=== PATIENT | female | born 1995 | race Caucasian/White ===

== ENCOUNTER → 2020-09-10 10:35 | Outpatient (BNVA) | payer BC, MEDICAID, SELFPAY | PROVIDERS: Family Provider Nurse Practitioner Family; PCP Family Medicine; Visit Provider Obstetrics & Gynecology | DX: O02.1 Missed abortion (principal) | CPT/HCPCS: 87635 ==

== ENCOUNTER 2020-09-15 06:00 | Day surgery (SDC) | payer BC, MEDICAID, SELFPAY ==
[2020-09-14 13:25] VITALS: BMI 24.0
[2020-09-15] VITALS (10 sets, daily range): BP systolic 78–132; BP diastolic 37–101; PULSE 96–116; RESP 16–22; TEMP 36.6–36.8; O2SAT 96–98
[2020-09-15] MEDS: sodium chloride 0.9% 1,000 ML 30 ML IV (06:40)
--- NOTE | 2020-09-15 06:41 | P.ANESASSM_ITS ---
Pre-Anesthetic Assessment Pre-Anesthetic Assessment: Height/Weight: Height 1.47 m Weight 52.163 kg Preop Diagnosis: Missed Proposed Procedure: Operation Date: 09/15/20 07:00 Proposed Procedures p Dilation And Curettage w/ Suction 06067 O02.1(Not Applicable) - Adelfo Nunez MD Familial anesthetic complications: None Was Beta Valentine taken within 24 hours: N/A Last intake: NPO > 8hrs Social: Social History: No alcohol and No tobacco Exam: Pre-Anes Outpt Exam: alert, oriented x 3, clear to auscultation bilaterally and regular rate & rhythm Airway: Cervical ROM: WNL MP: 2 Dentition: Full Metabolic: Comments: hypoglycemia Anesthetic Plan: ASA status: 1 Anesthesia: MAC Risk of > 500 ml blood loss (7ml/kg in children): No PFSH Anesthesia PFSH: Medical History (Updated 09/12/20 @ 17:23 by Adelfo Nunez MD) Anxiety and depression Migraine with aura Surgical History (Updated 09/12/20 @ 17:06 by Adelfo Nunez MD) H/O left wrist surgery (~2017) Fracture repair. Performed at [facility] in [place], [place]. H/O unilateral salpingectomy (~04/2020) Laparoscopic, left. Performed in [place], [place]. Family History Mother Hypertension Stroke Family history of thyroid problem Cancer Tongue and throat Migraine headache Father Diabetes Lung cancer Grandfather Diabetes Paternal Sister Migraine headache Social History Smoking and tobacco status: never smoked Alcohol intake: never Substance/Drug Use: never Data Anesthesia Cardiac Studies: No Data to Display
--- NOTE | 2020-09-15 06:42 | P.HPUD_ITS ---
Surgery/Procedure H&P Update DATE OF PROCEDURE: September 15, 2020 DATE H&P PERFORMED: 09/10/20 H&P UPDATE INFORMATION: I have reviewed H&P completed within last 30 days, I have examined patient prior to procedure, No changes to prior documentation and H&P is in [facility] EMR on date indicated PREOP DIAGNOSIS: Blighted Ovum PLANNED PROCEDURE: Operation Date: 09/15/20 07:00 Proposed Procedures p Dilation And Curettage w/ Suction 82283 O02.1(Not Applicable) - Adelfo Nunez MD Related Problem List Diagnoses (1) Blighted ovum:
[2020-09-15] MEDS: gabapentin 300 mg Capsule PO (06:54)
[2020-09-15] MEDS: ketorolac 30 mg/mL INJ IVP (06:54)
[2020-09-15] MEDS: midazolam 1 mg/mL INJ 2 mL 2 MG IVP (06:55)
--- NOTE | 2020-09-15 07:25 | P.OP_ITS ---
Operative Report Date of procedure: September 15, 2020 Pre-op Diagnosis: Blighted Ovum Post-op Diagnosis: Blighted ovum at 9-5/7 weeks gestation Procedure Done: Dilation and curettage with suction for treatment of blighted ovum, Paracervical block with 2% lidocaine with epinephrine Specimens removed/disposition: Products of conception Surgeon: Adelfo Nunez Civil Structural Designer: None Anesthesia: MAC and Other (Paracervical block) Estimated blood loss (mL): 25 IV fluids (mL): 500 Urine output (mL): 200 Complications: None Findings: Approximately 8-week size uterus, slightly anteverted. No palpable masses. Brief History: Patient is a 24-year-old female, 1, para 0 with an LMP of 07/09/2021 and an EDC of 04/14/2021 based on LMP, which placed her at 9-5/7 weeks gestation today. She was seen in [place] for infertility evaluation. She had finished a surgical treatment (removal of fallopian tube) and approximately 2 months later had a spontaneous . Ultrasound on 08/25/2020 showed a yolk sac, but no pole. Follow-up ultrasound on 09/08/2020 showed approximately 1 week increase in sac size, but still no pole. Based upon this, she was diagnosed with a blighted ovum. Treatment options were discussed with her and she wished to proceed with a dilation and curettage with suction. Procedure: Patient was taken to the operating room where IV sedation was started. She was prepped and draped in the usual sterile fashion in the dorsal supine position with legs in Yonas style stirrups. Sequential compression boots were placed prior to starting the case. Bladder was drained. Exam under anesthesia was performed. She was found to have an approximately 8- week size uterus with a slightly anteverted uterus. No palpable masses noted. Weighted speculum was placed in the vagina and the cervix was grasped with a single-tooth tenaculum. A paracervical block was performed using 10 mL of 2% lidocaine with epinephrine. The cervix was serially dilated until a size 9 curved suction curette could be passed. Suction curettage was performed until no further tissue was obtained. Sharp curettage was performed until there was a gritty texture throughout the endometrial cavity. Suction curettage was repeated until no further tissue was obtained. Tenaculum was removed and there was minimal bleeding from the tenaculum site. Patient tolerated the procedure well. Sponge and needle counts were correct. DRAINS: None POSTOPERATIVE STATUS: The patient was transferred to the recovery room in satisfactory condition. DISPOSITION: Discharge to home when criteria was met. FOLLOWUP APPOINTMENT: Followup appointment in approximately 1 week. MEDICATIONS: She received prescriptions for: Tramadol 50 mg, 1 to 2 tablets every 6 hours as needed for pain, #10, 0 refills May use [id number] ibuprofen Associated Problem List Diagnoses (1) Blighted ovum:
--- NOTE | 2020-09-15 07:37 | SUR.PHASEI ---
PT SLEEPS WITH GOOD RESP EFFORT, PT DOES NOT AWAKE TO TOUCH, ABD SOFT ERIN PAD IN PLACE, BP LOW, HOB FLAT, WILL MONITOR CLOSELY, NO DISTRESS NOTED. IV NS WITH PITOCIN W/O RATE
--- NOTE | 2020-09-15 08:01 | SUR.PHASEI ---
0721 PT AWAKES ALERT TALKATIVE, DENIES PAIN AND NAUSEA, REQUESTS SOME JUICE TO DRINK , VSS PT TO OPS HANDOFF AT BEDSIDE
[2020-09-15] MEDS: meperidine 50 mg/mL INJ 12.5 MG IVP (08:39)
--- NOTE | 2020-09-15 21:31 | ANE.PACU2 ---
Inpatient post-anesthesia follow up: Airway intact: Yes Vital signs: Temperature 98.2 F Pulse Rate 115 Respiratory Rate 16 Blood Pressure 123/74 Pulse Oximetry 98 Oxygen Delivery Me thod Room Air Oxygen Flow Rate Fraction of Inspir ed Oxygen Hydration adequate: Yes Nausea and vomiting: No Pain level: 2 Mental status: Baseline
== END 2020-09-15 09:09 | disposition home or self-care (01) ==
PROVIDERS: Family Provider Nurse Practitioner Family; PCP Family Medicine; Visit Provider Obstetrics & Gynecology
PROC: (CPT 59820; principal; 2020-09-15 07:00)
DX: O02.0 Blighted ovum and nonhydatidiform mole (principal)
CPT/HCPCS: 59820; 36415; 86850; 86900; 88305; 96374; 96375; J1885; J2175; J2250; J2704; J3010; J7030

== ENCOUNTER → 2020-12-29 14:36 | Outpatient (BNVA) | payer BC, MEDICAID, SELFPAY | PROVIDERS: Family Provider Nurse Practitioner Family; PCP Family Medicine; Visit Provider Nurse Practitioner Women's Health | DX: N92.6 Irregular menstruation, unspecified (principal); Z87.59 Personal history of other complications of pregnancy, childbirth and the puerperium; K58.0 Irritable bowel syndrome with diarrhea | CPT/HCPCS: 81025; 84702 ==

== ENCOUNTER → 2020-12-31 10:02 | Outpatient (BNVA) | payer BC, MEDICAID, SELFPAY | PROVIDERS: Family Provider Nurse Practitioner Family; Visit Provider Nurse Practitioner Women's Health | DX: Z87.59 Personal history of other complications of pregnancy, childbirth and the puerperium (principal); N92.6 Irregular menstruation, unspecified | CPT/HCPCS: 84702 ==

== ENCOUNTER → 2021-02-09 12:15 | Outpatient (BNVA) | payer BC, MEDICAID, SELFPAY | PROVIDERS: Family Provider Nurse Practitioner Family; Visit Provider Obstetrics & Gynecology | DX: Z34.80 Encounter for supervision of other normal pregnancy, unspecified trimester (principal); Z83.49 Family history of other endocrine, nutritional and metabolic diseases | CPT/HCPCS: 80307; 84315; 84443; 85027; 86592; 86762; 86803; 86850; 86900; 87086; 87340; 87806 ==

== ENCOUNTER → 2021-02-23 10:57 | Outpatient (BNVA) | payer BC, MEDICAID, SELFPAY | PROVIDERS: Family Provider Nurse Practitioner Family; Visit Provider Obstetrics & Gynecology | DX: Z34.90 Encounter for supervision of normal pregnancy, unspecified, unspecified trimester (principal) | CPT/HCPCS: 84315; 87491; 87591; 88175 ==

== ENCOUNTER → 2021-06-07 08:20 | Outpatient (BNVA) | payer BC, MEDICAID, SELFPAY | PROVIDERS: Family Provider Nurse Practitioner Family; Visit Provider Obstetrics & Gynecology | DX: Z34.80 Encounter for supervision of other normal pregnancy, unspecified trimester (principal) | CPT/HCPCS: 82950; 84315; 85027 ==

== ENCOUNTER → 2021-08-03 08:55 | Outpatient (BNVA) | payer BC, MEDICAID, SELFPAY | PROVIDERS: Family Provider Nurse Practitioner Family; Visit Provider Obstetrics & Gynecology | DX: Z34.90 Encounter for supervision of normal pregnancy, unspecified, unspecified trimester (principal) | CPT/HCPCS: 84315; 87081 ==

== ENCOUNTER 2021-08-10 17:49 | Inpatient (IN) | payer BC, MEDICAID, SELFPAY ==
[2021-08-10] VITALS (26 sets, daily range): BP systolic 115–154; BP diastolic 61–105; PULSE 72–104; TEMP 36.5–36.9; BMI 32.8
[2021-08-10 11:00] LABS: Basophils % 0.4 %; Eosinophils # 0.1 10^3/uL (0.0-0.8); Eosinophils % 0.8 %; Hematocrit 37.8 % (37.0-47.0); Hemoglobin 12.8 g/dL (11.5-15.3); Lymphocytes # 1.4 10^3/uL (0.8-4.8); Mean Corpuscular HGB Conc 33.9 g/dL (30.0-36.0); Mean Corpuscular Hemoglobin 29.8 pg (28.0-34.0); Mean Corpuscular Volume 88.1 fl (81-99); Monocytes # 0.6 10^3/uL (0.2-0.9); Monocytes % 6.1 %; Neutrophils # 6.95 10^3/uL (1.8-7.7); Neutrophils % 76.9 %; Nucleated Red Blood Cells % 0 %; Platelet Count 192 10^3/cmm (130-400); Red Blood Count 4.29 10^6/uL (4.1-5.3); Red Cell Distribution Width 13.2 % (12.1-15.1)
[2021-08-10 11:21] LABS: Urine Appearance Clear (CLEAR); Urine Color Straw (Yellow); pH Urine 7 (5-7)
[2021-08-10 11:22] LABS: Add Urine Culture? No; Bacteria Urine TRACE /hpf; Bilirubin Urine Neg (Negative); Blood Urine Neg (Negative); Glucose Urine UA Norm (Normal); Ketones Urine Negative (Negative); Leukocyte Esterase Urine Negative (Negative); Nitrate Urine Negative (Negative); Protein Urine Neg (Negative); Urobilinogen Urine Norm (Negative)
[2021-08-10 11:31] LABS: Urine Creatinine 25 mg/dL (28-217); Urine Protein Random 6 mg/dL
[2021-08-10 11:36] LABS: UPRO/UCREAT Ratio 0.24 mg/mg CR
[2021-08-10 11:56] LABS: Alanine Aminotransferase 11 U/L (0-33); Albumin Level 3.7 g/dL (3.5-5.2); Alkaline Phosphatase 160 IU/L (35-105); Anion Gap 17.4 (5-19); Aspartate Amino Transferase 18 U/L (0-32); Blood Urea Nitrogen 11 mg/dL (6-20); Calcium 10.6 mg/dL (8.5-10.5); Carbon Dioxide 20 mmol/L (22-29); Chloride 100 mmol/L (98-107); Globulin 2.3 g/dL (1.3-4.6); Glomerular Filtration Rate 120.8 mL/min (90-130); Glucose 75 mg/dL (65-115); Osmolality Calculated 274 mOsm/kg (285-295); Potassium 4.4 mmol/L (3.5-5.1); Sodium 133 mmol/L (136-145); Total Bilirubin 0.2 mg/dL (0.15-1.2); Uric Acid 6.9 mg/dL (2.4-5.7)
--- NOTE | 2021-08-10 12:03 | P.PN_ITS ---
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 She has had her epidural rebolused due to patchy coverage Labor: Station: -3 Amniotic Membrane Status: Intact Monitor Mode: External Contraction Pattern: Regular Status: Category I Vitals/I&O/Wt Last Vital Signs Temp 98.2 F 08/11/21 10:52 Pulse 86 08/11/21 11:59 Resp 20 H 08/11/21 03:56 BP 131/71 08/11/21 11:59 Pulse Ox 98 08/11/21 04:28 08/10/21 08/11/21 08/11/21 22:59 06:59 14:59 Intake Total 50 / 50 1103.60 / 1153.60 17.0 / 17.0 Balance 50 / 50 1103.60 / 1153.60 17.0 / 17.0 Weight last 48 hrs Weight 157 lb Weight 157 lb Physical Exam Const: COMMON NORMALS: no acute distress, patient oriented x3, no limitations, healthy appearing and well nourished GENERAL APPEARANCE: cooperative, comfortable, well kempt and well developed ORIENTATION/CONSCIOUSNESS: Yes awake, Yes oriented to person, Yes oriented to place and Yes oriented to time Resp: COMMON NORMALS: normal respiratory effort EFFORT & INSPECTION: Yes able to speak in complete sentences : MANUAL OB EXAM: dilated 6 cm, effaced 75% and station high Neuro: COMMON NORMALS: patient oriented x3 SENSORIUM/ORIENTATION: Yes oriented to person, Yes oriented to place and Yes oriented to time Psych: APPEARANCE: Yes well kempt Urinary Catheter Management: Junior: Cath Placed During This Visit: yes Reason for Continuing Indwelling Catheter: Other Urinary Catheter Date of Insertion: 08/11/21 Urinary Catheter Time of Insertion: 05:45 Data : 08/10/21 10:30 08/10/21 11:25 A&P Assessment and plan (1) CPD (cephalo-pelvic disproportion): The patient has attained 6 cm of cervical dilation and has had NO descent. She has an extremely narrow outlet. I discussed with her the risks of a narrow outlet, including but not limited to failure to progress, shoulder dystocia and severe perineal laceration. I can barely reach the head on exam. I recommend that we proceed with and she and her agree. The pitocin will be stopped and will proceed with surgery. status has always remained stable, reactive and reassuring. Status: Acute Attestations Medical Necessity Statement*: She will have a . She will be here more than two midnights. Coding Level of Care Code Acute Metallurgical Laboratory Assistant for 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
[2021-08-10] MEDS: ampicillin 2,000 MG in sodium chloride 0.9% (plus) 50 ML 100 MG IV (17:04)
[2021-08-10] MEDS: sodium chloride 0.9% 500 ML 999 ML IV (17:04)
[2021-08-10] MEDS: dextrose 5%-lactated ringers 1,000 ML 125 ML IV (17:06)
[2021-08-10] MEDS: miSOPROStol 100 mcg tablet 25 MCG VAGINAL ×2 (18:00→22:30)
[2021-08-10] MEDS: ampicillin 1,000 MG in sodium chloride 0.9% (plus) 50 ML 100 MG IV (21:16)
[2021-08-11] VITALS (82 sets, daily range): BP systolic 116–172; BP diastolic 69–106; PULSE 85–148; RESP 16–20; TEMP 36.1–36.9; O2SAT 93–99
[2021-08-11] MEDS: ampicillin 1,000 MG in sodium chloride 0.9% (plus) 50 ML 100 MG IV ×3 (00:19→10:15)
[2021-08-11] MEDS: fentaNYL 50 mcg/mL INJ 2mL IVP ×2 (00:20→03:56)
--- NOTE | 2021-08-11 04:37 | P.ANESASSM_ITS ---
Pre-Anesthetic Assessment Height/Weight: Height 1.47 m Weight 71.214 kg Temp Pulse Resp BP Pulse Ox 98.2 F 137 H 20 H 163/87 98 08/11/21 00:00 08/11/21 04:33 08/11/21 03:56 08/11/21 04:33 08/11/21 04:28 Preop Diagnosis: Active Labor Labor Epidural Familial anesthetic complications: none Last intake: 1999- meal clears- current Exam alert, oriented x 3, clear to auscultation bilaterally and regular rate & rhythm Airway Submandibular: within normal limits Cervical ROM: within normal limits Mallampati: Class II Dentition: full Pulmonary None reported CV/HEM None reported admitted for HTN None reported Hepatic None reported GI Gastroesophageal Reflux Disease Metabolic None reported Neuropsych Anxiety and Depression Anesthetic Plan ASA status: 2 Anesthesia: Regional (specify below) Other: Labor Epidural Medications/Allergies Home Medications Medication Instructions Recorded Confirmed Last Taken Type prenat.vits,malu,qkd-jkal-ujpph 1 tab PO DAILY 09/10/20 08/10/21 08/10/21 History 0800 breast pump (Pump In Style #1 ea 06/22/21 08/10/21 Unknown Rx Advanced) hydroxyzine HCl 25 mg tablet 25 mg PO TID PRN #30 tab 07/21/21 08/10/21 08/10/21 Rx 0800 sertraline 50 mg tablet (Zoloft) 50 mg PO DAILY #14 tab 08/03/21 08/10/21 08/10/21 Rx 0800 Allergies Allergy/AdvReac Type Severity Reaction Status Date / Time No Known Allergies Allergy Verified 08/10/21 09:06 Current Medications Generic Name Dose Route Start Last Admin Trade Name Ortizq PRN Reason Stop Dose Admin Fentanyl 25 - 100 mcg 08/10/21 16:35 08/11/21 03:56 Fentanyl 50 Mcg/Ml Inj 2ml IVP 50 mcg Q1H PRN Administration SEVERE PAIN Dextrose/Lactated Ringer's 1,000 mls @ 125 mls/hr 08/10/21 16:45 08/10/21 17:06 Dextrose 5%-Lactated Ringers IV 125 mls/hr .Q8H MELLISA Administration Ampicillin Sodium 1,000 mg/ 50 mls @ 100 mls/hr 08/10/21 20:45 08/11/21 00:19 Sodium Chloride IV 100 mls/hr Q4H MELLISA Administration Protocol Sodium Chloride 500 mls @ 0 mls/hr 08/10/21 16:45 08/10/21 17:04 Sodium Chloride 0.9% IV 999 mls/hr .Q0M MELLISA Administration As Directed Ropivacaine 200 mg in 100 mls @ 13 mls/hr 08/11/21 02:45 08/11/21 03:17 Naropin Premix EPIDURAL 13 mls/hr .[id number] MELLISA Administration [facility] Anesthesia Medical History Anxiety and depression History of anxiety and depression when she was 15 years old and was taking medication in the past but does not remember the name. Denies use of any medication since 2019 and overall feels fine. History of infertility Reports history of infertility and was undergoing evaluation in [place]. Had surgery with removal of an abnormal fallopian tube and got a couple of months later. Did not ever have to go through IVF/ovulation induction. No pertinent past medical history Denies diabetes, asthma, hypertension, seizures, DVT/PE PCP: None Surgical History H/O left wrist surgery (~2017) Fracture repair. Performed at [facility] in [place], [place]. H/O unilateral salpingectomy (~04/2020) 05/11/2020----examination under anesthesia, hymenotomy incision, operative hysteroscopy with removal of endometrial polyps and chromotubation, operative laparoscopy with extensive lysis of adhesions, left salpingectomy, resection of right accessory fallopian tube . Surgery done for chronic dysmenorrhea and a cystic left adnexal structure. -Operative reports have been scanned into the chart. 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 S/P dilation and curettage (09/15/20) 09/15/2020------> for blighted ovum performed by Dr. Nunez at [facility] in [place], [place]. Family History Mother Hypertension Stroke Cancer Tongue and throat Thyroid condition Father Diabetes Lung cancer Grandfather Diabetes Paternal Family/Other Breast cancer Maternal Aunt--dx age unknown Denies family history of Colon cancer Ovarian cancer Heart disease Hyperlipidemia Uterine cancer Female Reproductive History : 2 Data Anesthesia : 08/10/21 10:30 08/10/21 11:25 Short CBC 08/10/21 Range/Units 10:30 WBC 9.0 (4.0-10.0) 10^3/uL Hgb 12.8 (11.5-15.3) g/dL Hct 37.8 (37.0-47.0) % MCV 88.1 (81-99) fl Plt Count 192 (130-400) 10^3/cmm Neut % (Auto) 76.9 % Neut # (Auto) 6.95 (1.8-7.7) 10^3/uL BMP 08/10/21 08/10/21 10:30 11:25 Sodium Cancelled 133 L Potassium Cancelled 4.4 Chloride Cancelled 100 Carbon Dioxide Cancelled 20 L BUN Cancelled 11 Creatinine Cancelled 0.6 Glucose Cancelled 75 Calcium Cancelled 10.6 H Liver Function 08/10/21 08/10/21 Range/Units 10:30 11:25 Total Bilirubin Cancelled 0.2 AST Cancelled 18 ALT Cancelled 11 Alkaline Phosphatase Cancelled 160 H Albumin Cancelled 3.7 Urine 08/10/21 Range/Units 10:30 Urine Color Straw (Yellow) Urine Appearance Clear (CLEAR) Urine pH 7 (5-7) Ur Specific [place] 1.010 (1.005-1.030) Urine Protein Neg (Negative) Urine Glucose (UA) Norm (Normal) Urine Ketones Negative (Negative) Urine Nitrate Negative (Negative) Urine Bilirubin Neg (Negative) Ur Leukocyte Esterase Negative (Negative) Urine RBC None (0-2) /hpf Urine WBC None (0-5) /hpf Cardiac Studies: No Data to Display
[2021-08-11] MEDS: lactated ringers 1,000 ML 999 ML IV ×2 (04:40→12:54)
[2021-08-11] MEDS: dextrose 5%-lactated ringers 1,000 ML 125 ML IV ×2 (04:41→15:11)
--- NOTE | 2021-08-11 04:41 | ANES.PROC ---
Anesthesia Procedures Procedure/Date: 08/11/21 Epidural: Time Out Performed: Yes Consents Signed: Procedure Consent Consent: requested by attending/covering physician, from patient, risks and benefits reviewed and patient agrees to proceed Lumbar Level: L3-L4 Epidural position: sitting Epidural procedure: sterile prep of area, 1% lidocaine to numb the area, negative for paresthesia passed, neg for paresthesia, test dose given, no systemic response, sterile dressing applied, L.U.D. no apparent complications and 0.2% Ropiavacaine @ mls/hr (11) Additional Comments: attempts x4 BIN at 5.5 catheter threaded to 12 cm VSS.
[2021-08-11] MEDS: oxytocin 30 UNIT/500 ML BAG IV (04:42)
--- NOTE | 2021-08-11 11:01 | PM.MISC ---
Miscellaneous Note Purpose of Documentation: Patient having some pain in LLQ. Patient bolused 10 cc off of pump. Pain improved.
--- NOTE | 2021-08-11 12:00 | PM.OPHPUD ---
Labor & Delivery H&P Update Date of Procedure: August 11, 2021 Date H&P Performed: 09/10/20 H&P update information: I have reviewed H&P completed within last 30 days, I have examined patient prior to procedure and Changes to prior documentation as noted here Changes to previous documentation: The patient has had labile blood pressures and is term. She will be induced for gestational hypertension. Admission Diagnosis: Preop diagnosis: gestational hypertension Related Problem List Diagnoses (1) Elevated blood pressure affecting , antepartum: (2) GBS (group B Streptococcus carrier), +RV culture, currently : (3) Anxiety and depression: (4) Rubella non-immune status, antepartum: (5) Supervision of other normal :
[2021-08-11] MEDS: metoclopramide 5 mg/mL SDV 2 mL 10 MG IVP (12:53)
[2021-08-11] MEDS: citric acid-sodium citrate 30 mL UDC PO (12:53)
[2021-08-11] MEDS: famotidine 20 mg/2 mL INJ IVP (12:53)
--- NOTE | 2021-08-11 14:15 | P.OP_ITS ---
Operative Report Date of procedure: August 11, 2021 Pre-op diagnosis: Preop Diagnosis CPD Post-op diagnosis: same, malpresentation Post-op findings: term female in the mentum anterior presentation Procedure done: primary Specimens removed/disposition: placenta Surgeon: Les Hobbs Estimated blood loss: 700 ml IV fluids: 1000 ml Urine output: 100 ml Complications: none Brief History: The patient was induced for gestational hypertension. She reached 6 cm dilation, but the vertex could barely be reached. She had a narrow outlet on exam. A discussion was held and the decision for a primary . Procedure: The patient was taken to the operating room where spinal anesthesia was administered and found to be adequate. She was prepped and draped in the normal sterile fashion in the dorsal supine position with a leftward tilt. A Pfannenstiel skin incision was made and carried down to the underlying layer of fascia. The fascia was nicked in the midline and extended laterally with the Elizabeth scissors. The fascia was then tented up and the rectus muscles dissected o ff sharply. The rectus muscles were and the peritoneum entered bluntly with the digit. The peritoneal incision was extended superiorly and inferiorly with good visualization of the bladder. The Ned O retractor was placed. It was clear of any bowel or omentum. The bladder flap was created sharply with the Metzenbaum scissors. A low transverse uterine incision was made and carried down to the bag of water. The bag of water was ruptured and the uterine incision extended cephalocaudad. The presentation of the baby was mentum anterior. The scalp was grasped and brought through the incision. The nose and mouth were bulb suctioned. The shoulders and body delivered atraumatically. The baby was allowed to rest, while being dried, for 1 minute and then the cord was clamped and cut. The baby was handed to the waiting geographic information systems manager. The placenta was delivered by expression. The uterus was exteriorized and cleared of all clots and debris. The uterus was very boggy. She was given 20 units of pitocin in the fundus of the uterus and 1 gram of TXA. The uterine incision was closed with 0 Vicryl in a running fashion. A second imbricating layer of 3-0 Monocryl was used to close the uterus. The bladder flap was closed with 3-0 Monocryl. There was excellent hemostasis. The Ned O retractor was removed. The uterus was returned to the abdomen. The peritoneum was closed with 3-0 Monocryl, incorporating the rectus muscle. The fascia was closed with 0 Vicryl in 2 separate sutures overlapping in the midline. The skin was closed with absorbable dameon. Apgars on baby 8 at 1 minute and 9 at 5 minutes. weight 5 pounds 15 ounces. Mother and baby were stable post delivery.
[2021-08-11 14:35] LABS: Coronavirus Test Green County Not Detected
[2021-08-11] MEDS: ketorolac 30 mg/mL INJ IVP ×2 (15:10→21:21)
--- NOTE | 2021-08-11 15:55 | ANE.PACU2 ---
Inpatient post-anesthesia follow up: Airway intact: Yes Vital signs: Temperature 98.2 F Pulse Rate 117 Respiratory Rate 20 Blood Pressure 159/77 Pulse Oximetry 98 Oxygen Delivery Me thod Room Air Oxygen Flow Rate Fraction of Inspir ed Oxygen Hydration adequate: Yes Nausea and vomiting: No Pain level: 3 Mental status: Baseline
[2021-08-11] MEDS: ferrous sulfate EC 325 mg Tablet PO (18:20)
[2021-08-11] MEDS: docusate sodium 100 mg Capsule PO (18:20)
[2021-08-12 01:10] VITALS: BP 135/85; PULSE 96; RESP 16; O2SAT 96
[2021-08-12] MEDS: HYDROcodone-acetaminophen 5-325 mg Tablet PO ×4 (01:33→22:42)
[2021-08-12 02:14] LABS: Hematocrit 28.7 % (37.0-47.0); Hemoglobin 9.4 g/dL (11.5-15.3); Mean Corpuscular HGB Conc 32.8 g/dL (30.0-36.0); Mean Corpuscular Hemoglobin 29.2 pg (28.0-34.0); Mean Corpuscular Volume 89.1 fl (81-99); Mean Platelet Volume 11.5 fL (7.4-10.4); Platelet Count 163 10^3/cmm (130-400); Red Blood Count 3.22 10^6/uL (4.1-5.3); Red Cell Distribution Width 13.3 % (12.1-15.1); White Blood Count 10.6 10^3/uL (4.0-10.0)
[2021-08-12] MEDS: ketorolac 30 mg/mL INJ IVP ×2 (03:35→08:45)
[2021-08-12 04:17] VITALS: BP 143/94; PULSE 95; RESP 16; O2SAT 95
[2021-08-12] MEDS: docusate sodium 100 mg Capsule PO ×2 (08:46→19:03)
[2021-08-12] MEDS: prenatal vitamin Capsule 1 CAP PO (08:46)
[2021-08-12] MEDS: ferrous sulfate EC 325 mg Tablet PO ×2 (08:48→19:03)
[2021-08-12 08:50] VITALS: BP 143/94; PULSE 91; RESP 18; TEMP 36.7
[2021-08-12] MEDS: ibuprofen 800 mg tablet PO ×2 (15:48→22:40)
[2021-08-12 15:50] VITALS: BP 133/90; PULSE 96; RESP 18; TEMP 36.6; TEMP 36.7
--- NOTE | 2021-08-12 17:20 | PC.NURSE ---
0850 JONES CATH REMOVED WELL DRESSING REMOVED.
--- NOTE | 2021-08-12 19:33 | PM.PN ---
Subjective Subjective: Interval history: The patient is doing well today. She is sitting up eating on arrival. She states that pain is well controlled. Catheter has been removed and she is able to void. She has normal lochia. Vitals/I&O/Wt Last Vital Signs Temp 98.0 F 08/12/21 15:50 Pulse 96 08/12/21 15:50 Resp 18 08/12/21 15:50 BP 133/90 08/12/21 15:50 Pulse Ox 95 08/12/21 04:17 08/12/21 08/12/21 08/12/21 06:59 14:59 22:59 Intake Total 600 / 600 Output Total 1400 / 2150 250 / 250 400 / 650 Balance -1400 / -1133.0 350 / 350 -400 / -50 Physical Exam Narrative: EXAM NARRATIVE: no concerns today Const: COMMON NORMALS: no acute distress, average body habitus, patient oriented x3, no limitations, healthy appearing, alert and well nourished GENERAL APPEARANCE: cooperative, comfortable, well kempt and well developed ORIENTATION/CONSCIOUSNESS: Yes awake, Yes oriented to person, Yes oriented to place and Yes oriented to time Resp: COMMON NORMALS: normal respiratory effort EFFORT & INSPECTION: Yes able to speak in complete sentences GI: COMMON NORMALS: Soft to palpation and non-tender PALPATION: Yes Soft to palpation Neuro: COMMON NORMALS: patient oriented x3 SENSORIUM/ORIENTATION: Yes alert, Yes oriented to person, Yes oriented to place and Yes oriented to time Psych: COMMON NORMALS: mental status grossly normal, Normal thought process present, cooperative, normal affect and speech normal APPEARANCE: Yes grossly normal and Yes well kempt ATTITUDE: Yes calm and Yes engaged ACTIVITY/MOTOR BEHAVIOR: Yes appropriate eye contact SPEECH: Yes normal speech THOUGHT PROCESS: Normal thought process present Skin: WOUNDS: Yes surgical site (clean/dry/intact) Urinary Catheter Management: Junior: Cath Placed During This Visit: yes, but has since been removed by the nurse Reason for Continuing Indwelling Catheter: Other Urinary Catheter Date of Insertion: 08/11/21 Urinary Catheter Time of Insertion: 05:45 Date Urinary Catheter Removed: 08/12/21 Time Urinary Catheter Discontinued: 08:50 Data : 08/12/21 01:35 08/10/21 11:25 A&P Assessment and plan (1) CPD (cephalo-pelvic disproportion): doing well postoperatively continue with current plan ambulation prn continue with good pain management likely discharge tomorrow Status: Acute Attestations Medical Necessity Statement*: The patient has already been here two midnights Coding Level of Care Code Acute 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
[2021-08-12 22:00] VITALS: BP 127/92; PULSE 120; RESP 16; O2SAT 99
[2021-08-13 04:30] VITALS: BP 133/87; PULSE 82; RESP 16; O2SAT 96
[2021-08-13] MEDS: HYDROcodone-acetaminophen 5-325 mg Tablet PO ×2 (04:37→08:39)
[2021-08-13 08:30] VITALS: BP 135/91; PULSE 75; RESP 18; TEMP 36.7
[2021-08-13] MEDS: prenatal vitamin Capsule 1 CAP PO (08:39)
[2021-08-13] MEDS: docusate sodium 100 mg Capsule PO (08:39)
[2021-08-13] MEDS: ferrous sulfate EC 325 mg Tablet PO (08:39)
[2021-08-13] MEDS: ibuprofen 800 mg tablet PO (08:39)
--- NOTE | 2021-08-13 09:34 | PM.DCS ---
Discharge Providers Date of Admission: 08/10/21 17:49 Date of Discharge: August 13, 2021 Attending Provider at Admission: Sheryl Hobbs MD Attending Provider at Discharge: Sheryl Hobbs MD Diagnoses at Discharge Discharge Diagnosis (1) CPD (cephalo-pelvic disproportion): Status: Acute Reason for Visit Reason for Visit: ELEVATE BLOOD PRESSURES Hospital Course Hospital Course The patient was admitted for induction for gestational hypertension. She reached 6 cm dilation and failed to progress. She had a primary . She did well postoperatively and was ready for dischrge on day #2 Physical Exam Narrative: EXAM NARRATIVE: doing well today. No concerns Const: COMMON NORMALS: no acute distress, average body habitus, patient oriented x3, no limitations, healthy appearing, alert and well nourished GENERAL APPEARANCE: cooperative, comfortable, well kempt and well developed ORIENTATION/CONSCIOUSNESS: Yes awake, Yes oriented to person, Yes oriented to place and Yes oriented to time Resp: COMMON NORMALS: normal respiratory effort EFFORT & INSPECTION: Yes able to speak in complete sentences GI: COMMON NORMALS: Soft to palpation and non-tender PALPATION: Yes Soft to palpation Neuro: COMMON NORMALS: patient oriented x3 SENSORIUM/ORIENTATION: Yes alert, Yes oriented to person, Yes oriented to place and Yes oriented to time Psych: APPEARANCE: Yes grossly normal and Yes well kempt ATTITUDE: Yes calm and Yes engaged ACTIVITY/MOTOR BEHAVIOR: Yes appropriate eye contact Skin: WOUNDS: Yes surgical site (clean/dry/intact) Urinary Catheter Management: Junior: Cath Placed During This Visit: yes, but has since been removed by the nurse Reason for Continuing Indwelling Catheter: Other Urinary Catheter Date of Insertion: 08/11/21 Urinary Catheter Time of Insertion: 05:45 Date Urinary Catheter Removed: 08/12/21 Time Urinary Catheter Discontinued: 08:50 Discharge Data Studies Completed and Pending Laboratory Results WBC 10.6 10^3/uL (4.0-10.0) H 08/12/21 01:35 RBC 3.22 10^6/uL (4.1-5.3) L 08/12/21 01:35 Hgb 9.4 g/dL (11.5-15.3) L 08/12/21 01:35 Hct 28.7 % (37.0-47.0) L 08/12/21 01:35 MCV 89.1 fl (81-99) 08/12/21 01:35 MCH 29.2 pg (28.0-34.0) 08/12/21 01:35 MCHC 32.8 g/dL (30.0-36.0) 08/12/21 01:35 RDW 13.3 % (12.1-15.1) 08/12/21 01:35 Plt Count 163 10^3/cmm (130-400) 08/12/21 01:35 MPV 11.5 fL (7.4-10.4) H 08/12/21 01:35 Neut % (Auto) 76.9 % 08/10/21 10:30 Lymph % (Auto) 15.0 % 08/10/21 10:30 Coles % (Auto) 6.1 % 08/10/21 10:30 Eos % (Auto) 0.8 % 08/10/21 10:30 Baso % (Auto) 0.4 % 08/10/21 10:30 Neut # (Auto) 6.95 10^3/uL (1.8-7.7) 08/10/21 10:30 Lymph # (Auto) 1.4 10^3/uL (0.8-4.8) 08/10/21 10:30 Coles # (Auto) 0.6 10^3/uL (0.2-0.9) 08/10/21 10:30 Eos # (Auto) 0.1 10^3/uL (0.0-0.8) 08/10/21 10:30 Baso # (Auto) 0.0 10^3/uL (0.0-0.1) 08/10/21 10:30 Nucleated RBC % (auto) 0 % 08/10/21 10:30 Nucleated RBCs # 0.0 /100WBC 08/10/21 10:30 Sodium 133 mmol/L (136-145) L 08/10/21 11:25 Potassium 4.4 mmol/L (3.5-5.1) 08/10/21 11:25 Chloride 100 mmol/L (98-107) 08/10/21 11:25 Carbon Dioxide 20 mmol/L (22-29) L 08/10/21 11:25 Anion Gap 17.4 (5-19) 08/10/21 11:25 BUN 11 mg/dL (6-20) 08/10/21 11:25 Creatinine 0.6 mg/dL (0.5-0.9) 08/10/21 11:25 GFR Calculation 120.8 mL/min (90-130) 08/10/21 11:25 Glucose 75 mg/dL (65-115) 08/10/21 11:25 Calculated Osmolality 274 mOsm/kg (285-295) L 08/10/21 11:25 Uric Acid 6.9 mg/dL (2.4-5.7) H 08/10/21 11:25 Calcium 10.6 mg/dL (8.5-10.5) H 08/10/21 11:25 Total Bilirubin 0.2 mg/dL (0.15-1.2) 08/10/21 11:25 AST 18 U/L (0-32) 08/10/21 11:25 ALT 11 U/L (0-33) 08/10/21 11:25 Alkaline Phosphatase 160 IU/L (35-105) H 08/10/21 11:25 Total Protein 6.0 g/dL (6.6-8.7) L 08/10/21 11:25 Albumin 3.7 g/dL (3.5-5.2) 08/10/21 11:25 Globulin 2.3 g/dL (1.3-4.6) 08/10/21 11:25 Urine Color Straw (Yellow) 08/10/21 10:30 Urine Appearance Clear (CLEAR) 08/10/21 10:30 Urine pH 7 (5-7) 08/10/21 10:30 Ur Specific [place] 1.010 (1.005-1.030) 08/10/21 10:30 Urine Protein Neg (Negative) 08/10/21 10:30 Urine Glucose (UA) Norm (Normal) 08/10/21 10:30 Urine Ketones Negative (Negative) 08/10/21 10:30 Urine Blood Neg (Negative) 08/10/21 10:30 Urine Nitrate Negative (Negative) 08/10/21 10:30 Urine Bilirubin Neg (Negative) 08/10/21 10:30 Urine Urobilinogen Norm mg/dL (Negative) 08/10/21 10:30 Ur Leukocyte Esterase Negative (Negative) 08/10/21 10:30 Urine RBC None /hpf (0-2) 08/10/21 10:30 Urine WBC None /hpf (0-5) 08/10/21 10:30 Ur Squamous Epith Cells 5-10 /hpf (0-5) H 08/10/21 10:30 Amorphous Sediment Not Reportable 08/10/21 10:30 Urine Bacteria Trace /hpf (NONE) 08/10/21 10:30 U Random Total Protein 6 mg/dL 08/10/21 10:30 Urine Creatinine 25 mg/dL (28-217) L 08/10/21 10:30 Protein/Creatinin Ratio 0.24 mg/mg CR 08/10/21 10:30 Nasal/Oral COVID-19 PCR Not detected 08/10/21 17:00 Vitals Last Vital Signs Temp 98.0 F 08/12/21 15:50 Pulse 82 08/13/21 04:30 Resp 16 08/13/21 04:30 BP 133/87 08/13/21 04:30 Pulse Ox 96 08/13/21 04:30 Discharge Plan Discharge Patient Disposition: Home Condition: Stable Prescriptions: New docusate sodium 100 mg Capsule 100 mg PO BID Qty: 60 0RF ferrous sulfate 325 mg (65 mg iron) Tablet,Delayed Release (Dr/Ec) 325 mg PO BIDWM Qty: 60 6RF hydrocodone-acetaminophen 5-325 mg Tablet 1 tab PO Q4H PRN (Reason: Moderate To Severe Pain) Qty: 30 0RF ibuprofen 800 mg Tablet 800 mg PO TID Qty: 40 0RF Continued (DME) breast pump [Pump In Style Advanced] Device See Rx Instructions .MEDSUPPLY Qty: 1 0RF Rx Instructions: As directed sertraline [Zoloft] 50 mg tablet 50 mg PO DAILY Qty: 14 0RF hydroxyzine HCl 25 mg tablet 25 mg PO TID PRN (Reason: itching) Qty: 30 0RF prenat.vits,malu,ydz-mxwh-bzlwc Tablet 1 tab PO DAILY 0RF Discharge Orders: Discharge Order (Routine); Ordered 08/13/21 Ordered By: Sheryl Hobbs Patient Instructions: Opioid Safety Discharge Attestations Time Spent in Discharge Care*: less than 30 min Quality Metrics Clinical Quality Measures [ No reported AMI, CVA or VTE this stay] Coding Level of Care Code Acute Chg FW DC note Diagnoses CPD (cephalo-pelvic disproportion) O33.9
[2021-08-13 10:30] VITALS: BP 135/91; PULSE 75; RESP 18; TEMP 36.7
== END 2021-08-13 10:30 | disposition home or self-care (01) | DRG 788 ==
LOC: OPOB 17:50 → OBGYN 17:50
PROVIDERS: Obstetrics & Gynecology; Admitting Provider Obstetrics & Gynecology; Visit Provider Obstetrics & Gynecology
PROC: 10D00Z1 Extraction of Products of Conception, Low, Open Approach (ICD-10-PCS; CPT 59514; principal; 2021-08-11 13:00)
DX: O13.4 Gestational [pregnancy-induced] hypertension without significant proteinuria, complicating childbirth (principal); O65.8 Obstructed labor due to other maternal pelvic abnormalities; O32.3XX0 Maternal care for face, brow and chin presentation, not applicable or unspecified; Z37.0 Single live birth; Z3A.37 37 weeks gestation of pregnancy; O99.344 Other mental disorders complicating childbirth; F41.9 Anxiety disorder, unspecified; F32.A Depression, unspecified; O99.824 Streptococcus B carrier state complicating childbirth; Z28.3 Underimmunization status; Z23 Encounter for immunization
CPT/HCPCS: 36415; 51702; 59025; 59409; 80053; 81001; 82570; 84156; 84315; 84550; 85025; 85027; 87635; 90707; 96372; 96374; 96376; 99211; J0290; J0690; J1885; J2250; J2274; J2405; J2704; J2765; J2795; J3010; J3490; J7040

== ENCOUNTER → 2022-03-01 15:53 | Outpatient (BNVA) | payer BC, SELFPAY | PROVIDERS: Visit Provider Orthopaedic Surgery | DX: M25.532 Pain in left wrist (principal) | CPT/HCPCS: 73110 ==

== ENCOUNTER → 2022-05-12 12:11 | Outpatient (BNVA) | payer BC, SELFPAY | PROVIDERS: Visit Provider Registered Nurse Neonatal Intensive Care | DX: J02.9 Acute pharyngitis, unspecified (principal); J02.0 Streptococcal pharyngitis | CPT/HCPCS: 87880 ==

== ENCOUNTER → 2022-05-17 10:37 | Outpatient (BNVA) | payer BC, SELFPAY | PROVIDERS: Visit Provider Registered Nurse Neonatal Intensive Care | DX: R50.9 Fever, unspecified (principal); B34.9 Viral infection, unspecified | CPT/HCPCS: 87400 ==

== ENCOUNTER → 2022-08-14 13:30 | Outpatient (BNVA) | payer BC, SELFPAY | PROVIDERS: Visit Provider Emergency Medicine | DX: J02.9 Acute pharyngitis, unspecified (principal) | CPT/HCPCS: 87071; 87880 ==

== ENCOUNTER → 2023-06-20 17:10 | Outpatient (BNVA) | payer OTHER, SELFPAY | PROVIDERS: Visit Provider Nurse Practitioner | DX: J02.9 Acute pharyngitis, unspecified (principal) | CPT/HCPCS: 87880 ==

== ENCOUNTER → 2023-10-03 10:27 | Outpatient (BNVA) | payer OTHER, SELFPAY | PROVIDERS: Visit Provider Nurse Practitioner Women's Health | DX: N39.0 Urinary tract infection, site not specified (principal) | CPT/HCPCS: 81000 ==

== ENCOUNTER → 2024-02-06 11:30 | Outpatient (BNVA) | payer OTHER, SELFPAY | PROVIDERS: Visit Provider Registered Nurse Neonatal Intensive Care | DX: J02.9 Acute pharyngitis, unspecified (principal) | CPT/HCPCS: 87880 ==

== ENCOUNTER 2024-05-20 05:47 | Outpatient (CLI) | payer OTHER, SELFPAY ==
--- NOTE | 2024-05-20 05:59 | USCV_ITS ---
Jolynn Neely Age: 28 Gender: F : 1995 Exam Date: 05/20/2024 06:15 Ordering Phys: Jean-Paul Gutierrez DO Technologist: [place] [facility] [place]: [place] BP: 120 / 70 HR: 78 Rhythm: Sinus Technical Quality: Adequate MEASUREMENTS (Male / Female) Normal Values 2D ECHO LV Diastolic Diameter PLAX 4.0 cm 4.2 - 5.9 / 3.9 - 5.3 cm LV Systolic Diameter PLAX 2.9 cm IVS Diastolic Thickness 0.8 cm 0.6 - 1.0 / 0.6 - 0.9 cm IVS Systolic Thickness 1.4 cm LVPW Diastolic Thickness 0.9 cm 0.6 - 1.0 / 0.6 - 0.9 cm LVPW Systolic Thickness 1.2 cm LVOT Diameter 1.6 cm LV Ejection Fraction 2D Teich 52.9 % LV Ejection Fraction MOD 4C 63.3 % LV Ejection Fraction MOD 2C 66.7 % LV Ejection Fraction 2C AL 66.3 % LA Diameter 2.2 cm RA Systolic Volume 4C AL 27.2 ml RA Systolic Volume 4C MOD 25.7 ml Aorta at Sinotubular Diameter 2.3 cm IVC Diameter 1.4 cm M-MODE LA Ao Ratio MM 1.1 AV Cusp Separation MM 2.8 cm DOPPLER AV Peak Velocity 107.0 cm/s LVOT Peak Velocity 90.0 cm/s AV Area Cont Eq vti 1.8 cm squared AV Area Cont Eq pk 1.6 cm squared MV Area PHT 4.2 cm squared Mitral E to A Ratio 1.6 TV Peak Velocity 166.5 cm/s TR Peak Velocity 243.0 cm/s TR Peak Gradient 23.6 mmHg TV Peak E Velocity 125.0 cm/s Right Atrial Pressure 3.0 mmHg Pulmonary Artery Systolic Pressu 26.6 mmHg PV Peak Velocity 95.0 cm/s FINDINGS Left Ventricle Left ventricle is normal in size. LV systolic function is normal with EF of 55 to 60%. No regional wall motion abnormalities are seen. Right Ventricle Normal in size and function Right Atrium Normal in size Left Atrium Normal in size Mitral Valve Structurally normal mitral valve. Mild mitral regurgitation. Aortic Valve Structurally normal aortic valve. No significant stenosis. Mild regurgitation. Tricuspid Valve Mild tricuspid regurgitation. Pulmonary artery systolic pressure is normal. Pulmonic Valve Not well visualized Pericardium Normal Aorta Normal in size IVC Appears to be normal CONCLUSIONS LV systolic function is normal with EF of 55-60% Mild mitral regurgitation Mild aortic regurgitation. Mild tricuspid regurgitation No comparison studies are available. Oscar Deleon MD (Electronically Signed) Final Date: 09 June 2024 11:33 S
== END 2024-05-20 05:48 | disposition home or self-care (01) ==
LOC: RAD 05:49
PROVIDERS: PCP Electrodiagnostic Medicine; Visit Provider Electrodiagnostic Medicine
DX: R55 Syncope and collapse (principal)
CPT/HCPCS: 93306

== ENCOUNTER → 2024-10-08 10:43 | Outpatient (BNVA) | payer OTHER, SELFPAY | PROVIDERS: Visit Provider Nurse Practitioner Women's Health | DX: Z12.4 Encounter for screening for malignant neoplasm of cervix (principal) | CPT/HCPCS: 88175 ==

== ENCOUNTER → 2025-02-09 11:51 | Outpatient (BNVA) | payer OTHER, SELFPAY | PROVIDERS: Visit Provider Nurse Practitioner | DX: N39.0 Urinary tract infection, site not specified (principal) | CPT/HCPCS: 81000; 87077; 87086; 87184 ==

== ENCOUNTER → 2025-04-21 08:18 | Outpatient (BNVA) | payer OTHER, SELFPAY | DX: R52 Pain, unspecified (principal) | CPT/HCPCS: 73110 ==